=== PATIENT | male | born 1965 | race Caucasian/White ===

== ENCOUNTER 2019-11-21 10:20 | Outpatient (CLI) | payer BC ==
--- NOTE | 2019-11-21 14:23 | CARDIAC PROCEDURE NOTE ---
DATE OF SERVICE: 11/21/2019 Physician: Margarita Caldera MD, [facility] REQUESTING PHYSICIAN: Tasneem Hopson MD, in [place], [place] INDICATIONS 1. Chest pain. 2. Abnormal EKG. CARDIAC RISK FACTORS 1. Male gender. 2. Unknown family history regarding heart disease. PROCEDURE: After signing informed consent, patient underwent a Reji-protocol treadmill stress test. No imaging was ordered with this test. RESTING HEART RATE: 68. PEAK HEART RATE: 145 (86% predicted maximum heart rate for age). RESTING BLOOD PRESSURE: 116/80. PEAK BLOOD PRESSURE: 162/82. DETAILS: Patient exercised for 8 minutes and 15 seconds on a Reji-protocol treadmill stress test. Patient achieved a peak heart rate of 145 (86% PMHR) and 10.2 METs. Patient had mild shortness of breath. He experienced no chest pain during exercise. Oxygen saturation was 94%-98% on room air throughout the test. Normal heart rate and blood pressure response to exercise. RESTING EKG: Normal sinus rhythm, QS waves are present in leads V1 and V2, poor R-wave progression. EKG AT PEAK: No new ST depressions or T-wave changes occur. There is new ST elevation V1 and V2 (which suggests poss. LV aneurysm). SUMMARY 1. Abnormal resting EKG with suspicion for old anteroseptal infarction. 2. EKG changes in the anterior septal leads during exercise are suspicious for an LV aneurysm. 3. No ischemic changes occur by EKG criteria at a good level of stress achieved. 4. No imaging was ordered with this stress test. 5. Good aerobic tolerance. 6. This patient's cardiac risk based on all the above: Moderate-High. RECOMMENDATIONS: Echo should be done to establish if there is a wall motion abnormality or aneurysm. TD: 11/21/2019 14:06 FABIO
== END 2019-11-21 10:21 | disposition home or self-care (01) ==
LOC: DI 10:20
PROVIDERS: ATTEND Family Medicine
DX: R07.9 Chest pain, unspecified (principal); R94.31 Abnormal electrocardiogram [ECG] [EKG]
CPT/HCPCS: 93017